=== PATIENT | male | born 1970 | race Two or more races ===

== ENCOUNTER 2019-05-12 12:14 | Emergency (ER) | payer BC ==
[~2019-05-12] VITALS: Ht 177.8 cm; Wt 89.8 kg
[2019-05-12] MEDS ORDERED: LOSARTAN (12:30)
--- NOTE | 2019-05-12 13:40 | NUR ---
Patient discharged to home in stable conditon. Written and verbal after care instructions given. Patient verbalizes understanding of instructions.
== END 2019-05-12 13:42 | disposition home or self-care (01) ==
LOC: ER 12:22
DX: S59.901A Unspecified injury of right elbow, initial encounter (principal); Z79.899 Other long term (current) drug therapy; W51.XXXA Accidental striking against or bumped into by another person, initial encounter; Y93.66 Activity, soccer; Y92.89 Other specified places as the place of occurrence of the external cause; Y99.8 Other external cause status
CPT/HCPCS: 73080; A4663